=== PATIENT | male | born 1980 | race Caucasian/White ===

== ENCOUNTER 2017-05-03 10:48 | Emergency (ER) | payer OTHER ==
[~2017-05-03] VITALS: Ht 182.9 cm; Wt 112.0 kg
[2017-05-03 10:51] VITALS: BP 164/90
[2017-05-03] MEDS ORDERED: IBUPROFEN 600600 M1 PO (11:36)
[2017-05-03] MEDS ORDERED: NORCO 5-325 TA1 EACH PO (11:36)
== END 2017-05-03 11:45 | disposition home or self-care (01) ==
LOC: ER 10:48
DX: S90.31XA Contusion of right foot, initial encounter (principal); F17.210 Nicotine dependence, cigarettes, uncomplicated; W20.8XXA Other cause of strike by thrown, projected or falling object, initial encounter; Y93.89 Activity, other specified; Y92.89 Other specified places as the place of occurrence of the external cause; Y99.8 Other external cause status